=== PATIENT | female | born 1990 | race Caucasian/White ===

== ENCOUNTER → 2019-07-11 15:04 | Outpatient (CLI) | payer MEDICAID, SELFPAY ==
[2019-07-13 10:27] LABS: Thyroid Peroxidase Antibodies 326 IU/mL (0-34)
== END ==
PROVIDERS: Visit Provider Otolaryngology
DX: E03.9 Hypothyroidism, unspecified (principal); E04.9 Nontoxic goiter, unspecified
CPT/HCPCS: 36415; 84439; 86376

== ENCOUNTER → 2019-07-14 13:59 | Outpatient (CLI) | payer MEDICAID, SELFPAY ==
--- NOTE | 2019-07-14 14:11 | US_ITS ---
PROCEDURE: US THYROID CLINICAL INDICATION: ENLARGED THYROID COMPARISON: No exams were available for comparison FINDINGS: Right lobe: Right lobe is 4.0 x 1.6 x 1.1 cm. There is heterogeneous echogenicity of the right lobe. A 6 x 2 mm cyst present in the lower pole Left lobe: The left lobe is 3.6 x 0.9 x 1.1 cm. There is a questionable hypoechoic nodule in the mid polar region at 3 mm. Isthmus: Unremarkable at 3 mm IMPRESSION: Mildly prominent thyroid gland with heterogeneous echogenicity with nondescript cyst in the right pole and a questionable 4 mm nodule on the left. No suspicious or dominant nodules evident. Dictated by: Sandeep Escobar MD 07/14/2019 15:16 Electronically signed by Sandeep Escobar MD in [place] 07/14/2019 15:16
== END ==
PROVIDERS: PCP Nurse Practitioner Family; Visit Provider Otolaryngology
DX: E04.9 Nontoxic goiter, unspecified (principal)
CPT/HCPCS: 76536

== ENCOUNTER 2019-09-26 11:00 | Outpatient (RCR) | payer MEDICAID, SELFPAY | END 2019-10-26 15:17 | disposition home or self-care (01) | LOC: PT.CARL 11:00 | PROVIDERS: PCP Nurse Practitioner Family; Visit Provider Nurse Practitioner Family | DX: M54.5 Low back pain (principal) | CPT/HCPCS: 97014; 97110; 97140; 97163; G0283 ==

== ENCOUNTER → 2019-09-28 11:32 | Outpatient (CLI) | payer MEDICAID, SELFPAY ==
[2019-09-28 13:07] LABS: Free T4 (Free Thyroxine) 1.45 ng/dl (0.78-2.19)
[2019-09-28 13:22] LABS: Thyroid Stimulating Hormone < 0.02 uIU/mL (0.465-4.68)
[2019-09-29 09:26] LABS: Thyroid Peroxidase Antibodies 394 IU/mL (0-34)
[2019-09-30 19:25] LABS: Thyroid Stimulating Immunoglob <0.10 IU/L (0.00-0.55)
== END ==
PROVIDERS: Visit Provider Otolaryngology
DX: E06.9 Thyroiditis, unspecified (principal)
CPT/HCPCS: 36415; 84439; 84443; 84445; 86376

== ENCOUNTER 2021-09-18 20:02 | Emergency (ER) | payer MEDICAID, SELFPAY ==
[2021-09-18 20:03] VITALS: BP 156/105; PULSE 102; RESP 16; TEMP 37.2; O2SAT 98; BMI 30.2
--- NOTE | 2021-09-18 20:28 | HMH.EDGENADL ---
ED Disposition Clinical Impression: UTI (urinary tract infection) Disposition: Home, Self-Care Condition on Discharge: Good Instructions: DI for Low Back Pain Additional Instructions: Follow up with your primary care and use the medications as instructed. Return to the ER for any new or worsening symptoms. Take significant caution when using the Robaxin as it can cause sedation and you should not drive, operate machinery, or perform dangerous tasks while under the influence of this medication. Doing so could cause harm to yourself or those around you due to sedative effects. Prescriptions: Dicyclomine HCl [Bentyl 10mg capsule] 10 mg PO TID PRN 4 Days #12 cap PRN Reason: Mild Pain Transmission Status: Pending to [facility] methocarbamoL [Methocarbamol] 750 mg PO BID PRN 4 Days #8 tab PRN Reason: spasm Transmission Status: Pending to [facility] Cefdinir [Omnicef 300mg Capsule] 300 mg PO BID 10 Days #20 cap Transmission Status: Pending to [facility] Referrals: Dixie Rachel [Primary Care Provider] - Time of Disposition: :23 - Critical Care Critical Care Time: No Attestation: On , the high probability of a clinically significant, sudden or life threatening deterioration of the following system(s) required my full and direct attention, intervention and personal management. The time I documented below is in addition to time spent performing reported procedures but includes the following listed in this critical care notation. Medical Decision Making - Medical Records Medical records reviewed: Yes: I reviewed the patient's medical records. - Mickey Inquiry Pt receiving controlled substance: No Mickey was queried for this patient: No Vital Signs: 09/18/21 20:03 Temperature 99.0 F Temperature Source Oral Pulse Rate [Left] 102 H Respiratory Rate 16 Blood Pressure [Right Arm] 156/105 H Blood Pressure Mean [Right Arm] 122 02 Sat by Pulse Oximetry 98 - Lab Data Lab Results 09/18/21 20:20: Urine Color Yellow, Urine Appearance Clear, Urine pH 5.5, Ur Specific [place] >= 1.030, Urine Protein Negative, Urine Glucose (UA) Negative, Urine Ketones Negative, Urine Blood Negative, Urine Nitrate Negative, Urine Bilirubin Negative, Urine Urobilinogen 0.2, Ur Leukocyte Esterase Negative, Urine WBC 3-5, Ur Squamous Epith Cells 5-10, Urine Bacteria 1+ Orders (Tests/Meds): ED MEDICATIONS Discontinued Medications Generic Name Dose Route Start Last Admin Trade Name Chepe PRN Reason Stop Dose Admin Ketorolac Tromethamine 30 mg 09/18/21 20:28 09/18/21 20:56 Ketorolac 30mg/Ml Vial IV 09/18/21 20:29 30 mg ONCE ONE Administration Medical Decision Narrative: 31-year-old female who presents with left lower back pain/flank pain. He is well-appearing nontoxic. Patient is having urinary frequency. Given Toradol 30 mg IV and a urinalysis was obtained. Urinalysis has leukouria and bacteria and given her urinary symptoms we will treat as a urinary tract infection. Abdominal symptoms have subsided and her abdominal exam is benign. Think there is a possibility the source of her pain may still be musculoskeletal we will give her a prescription for Robaxin as well as the antibiotic. Given her recent diarrheal illness considered possible as needed treatment with Bentyl as needed. In good condition. General Adult HPI - General Chief complaint: Back Pain/Injury Stated complaint: pain lower back and stomach Time Seen by Provider: 09/18/21 20:28 Mode of Arrival: Ambulatory Source of Information: Patient Limitations: No Limitations Description of Symptoms (Recalled from ER Triage Doc. by RN): pt states that she had abdominal pain yesterday and that she had alot of diarrhea then woke up today with left back pain 6/10, pt also states she is having more frequent urge to urinate - History of Present Illness HPI narrative: 31-year-old female who presents with left-sided fl
[2021-09-18 20:38] LABS: Microscopic, Urine URINE MICROSCOPIC (MICROSCOPIC)
[2021-09-18 20:54] LABS: Appearance,Urine CLEAR (Clear); Bilirubin,Urine Negative (Negative); Blood, Urine Negative (Negative); Color,Urine YELLOW (Yellow); Glucose,Urine (UA) Negative (Negative); Ketones,Urine Negative (Negative); Leukocyte Esterase,Urine Negative (Negative); Nitrate,Urine Negative (Negative); PH,Urine 5.5 (5.0-8.5); Protein,Urine Negative (Negative); Specific Gravity, Urine >= 1.030 (1.005-1.030); Urobilinogen,Urine 0.2 EU/dl (0.2)
[2021-09-18 21:06] LABS: Bacteria,Urine 1+ /lpf
--- NOTE | 2021-09-18 21:13 | PC.NURSE ---
Pt resting well. No new needs. Visitor remains at bedside.
[2021-09-18 21:32] VITALS: BP 147/81; PULSE 90; RESP 16; TEMP 37.1; O2SAT 99
== END 2021-09-18 21:33 | disposition home or self-care (01) ==
PROVIDERS: Emergency Provider Student in an Organized Health Care Education/Training Program; PCP Nurse Practitioner Family
DX: R35.0 Frequency of micturition (principal); M54.50 Low back pain, unspecified; R19.7 Diarrhea, unspecified; R10.13 Epigastric pain; R10.32 Left lower quadrant pain; R11.0 Nausea; I10 Essential (primary) hypertension; E06.3 Autoimmune thyroiditis; G43.909 Migraine, unspecified, not intractable, without status migrainosus; Z87.891 Personal history of nicotine dependence
CPT/HCPCS: 81001; 99284

== ENCOUNTER 2022-01-13 20:49 | Emergency (ER) | payer MEDICAID, SELFPAY ==
[2022-01-13 20:50] VITALS: BP 137/99; PULSE 81; RESP 16; TEMP 36.6; O2SAT 97; BMI 30.6
--- NOTE | 2022-01-13 20:59 | PC.NURSE ---
c-collar applied to pt
--- NOTE | 2022-01-13 21:08 | PC.NURSE ---
Pt right foot propped up on pillow and ice pack provided.
[2022-01-13 21:30] VITALS: BP 137/99; PULSE 80; O2SAT 96
[2022-01-13 22:00] VITALS: BP 148/106; PULSE 81; O2SAT 90
--- NOTE | 2022-01-13 22:16 | XR_ITS ---
PROCEDURE INFORMATION: Exam: XR Right Foot Exam date and time: 01/13/2022 10:38 PM Age: 31 years old Clinical indication: Pain; Foot; Right; Additional info: Fall, C/O pain laterally TECHNIQUE: Imaging protocol: Radiologic exam of the Right foot. Views: 3 or more views. COMPARISON: CR XR ANKLE RT MIN 3V 01/13/2022 10:36 PM FINDINGS: Bones/joints: Normal appearing bones and joints without evidence of a fracture line. Bone density is normal without a lytic or blastic lesion. Soft tissues: NA IMPRESSION: No evidence of an acute bony injury or abnormality.
--- NOTE | 2022-01-13 22:16 | CT_ITS ---
PROCEDURE INFORMATION: Exam: CT Head Without Contrast Exam date and time: 01/13/2022 10:48 PM Age: 31 years old Clinical indication: Injury or trauma; Fall; Blunt trauma (contusions or hematomas); Without loss of consciousness TECHNIQUE: Imaging protocol: Computed tomography of the head without contrast. Radiation optimization: All CT scans at this facility use at least one of these dose optimization techniques: automated exposure control; mA and/or kV adjustment per patient size (includes targeted exams where dose is matched to clinical indication); or iterative reconstruction. COMPARISON: No relevant prior studies available. FINDINGS: Brain: Normal appearing brain parenchyma without intraparenchymal hemorrhage and normal diaz-white matter differentiation/no obvious acute ischemic stroke. No intra-or extra-axial fluid collection, no supra-or infratentorial mass, no mass effect or midline shift. Cerebral ventricles: Ventricles, sulci and basal cisterns are normal in size without hydrocephalus. Paranasal sinuses: No significant mucoperiosteal thickening in the visualized paranasal sinuses. Deviation of the nasal septum to the RIGHT. Mastoid air cells: No mastoid effusion. Bones/joints: Visualized skull bones are grossly normal. Soft tissues: NA IMPRESSION: No evidence of an acute intracranial hemorrhage, mass lesion or obvious acute ischemic infarction.
--- NOTE | 2022-01-13 22:16 | XR_ITS ---
PROCEDURE INFORMATION: Exam: XR Right Ankle Exam date and time: 01/13/2022 10:36 PM Age: 31 years old Clinical indication: Pain; Ankle; Right; Additional info: Fall, C/O pain laterally TECHNIQUE: Imaging protocol: Radiologic exam of the Right ankle. Views: 3 or more views. COMPARISON: No relevant prior studies available. FINDINGS: Bones/joints: Normal appearing bones and joints without evidence of a fracture line. Bone density is normal without a lytic or blastic lesion. Soft tissues: NA IMPRESSION: No evidence of an acute bony injury or abnormality.
--- NOTE | 2022-01-13 22:16 | CT_ITS ---
PROCEDURE INFORMATION: Exam: CT Cervical Spine Without Contrast Exam date and time: 01/13/2022 10:48 PM Age: 31 years old Clinical indication: Injury or trauma; Fall; Blunt trauma; Injury date: 01/13/22 TECHNIQUE: Imaging protocol: Computed tomography of the cervical spine without contrast. Radiation optimization: All CT scans at this facility use at least one of these dose optimization techniques: automated exposure control; mA and/or kV adjustment per patient size (includes targeted exams where dose is matched to clinical indication); or iterative reconstruction. COMPARISON: No relevant prior studies available. FINDINGS: Bones/joints: Loss of normal curvature of the spine, alignment of the vertebral bodies is grossly normal. Vertebral body height is normal without compression fracture or deformity. No evidence of a displaced fracture involving the vertebral bodies or their posterior elements. Facet joints are normally aligned without facetal dislocation or subluxation. Discs/Spinal canal/Neural foramina: Dens, lateral C1-C2 articulation, atlantooccipital joints are unremarkable without evidence of fracture or dislocation. Intervertebral discs are unremarkable. Soft tissues: Pre-and paravertebral soft tissues are grossly normal. IMPRESSION: Unremarkable study without an acute cervical spine injury or abnormality.
[2022-01-13 22:31] VITALS: BP 132/95; PULSE 78; O2SAT 98
[2022-01-13 23:00] VITALS: BP 159/102; PULSE 73; O2SAT 97
--- NOTE | 2022-01-13 23:27 | PC.NURSE ---
Pt complains of head pain. RN notified.
--- NOTE | 2022-01-13 23:50 | HMH.EDFALL ---
ED Disposition Clinical Impression: Concussion without loss of consciousness Qualifiers: Encounter type: initial encounter Qualified Code(s): S06.0X0A - Concussion without loss of consciousness, initial encounter Cervical strain, acute Qualifiers: Encounter type: initial encounter Qualified Code(s): S16.1XXA - Strain of muscle, fascia and tendon at neck level, initial encounter Sprain of foot, right Qualifiers: Encounter type: initial encounter Qualified Code(s): S93.601A - Unspecified sprain of right foot, initial encounter Disposition: Home, Self-Care Condition on Discharge: Good Instructions: DI for Concussion Additional Instructions: fluids and call pcp for follow up Referrals: Dixie Rachel [Primary Care Provider] - - Critical Care Critical Care Time: No Attestation: On 01/13/22, the high probability of a clinically significant, sudden or life threatening deterioration of the following system(s) required my full and direct attention, intervention and personal management. The time I documented below is in addition to time spent performing reported procedures but includes the following listed in this critical care notation. Medical Decision Making - Medical Records Medical records reviewed: Yes: I reviewed the patient's medical records. - Mickey Inquiry Pt receiving controlled substance: No Vital Signs: 01/13/22 20:50 01/13/22 21:30 01/13/22 22:00 Temperature 97.9 F Temperature Source Oral Pulse Rate 80 81 Pulse Rate [Left] 81 Respiratory Rate 16 Blood Pressure 137/99 H 148/106 H Blood Pressure [Right Arm] 137/99 H Blood Pressure Mean [Right Arm] 111 02 Sat by Pulse Oximetry 97 96 90 L Oxygen Delivery Method Room Air 01/13/22 22:31 01/13/22 23:00 Temperature Temperature Source Pulse Rate 78 73 Pulse Rate [Left] Respiratory Rate Blood Pressure 132/95 H 159/102 H Blood Pressure [Right Arm] Blood Pressure Mean [Right Arm] 02 Sat by Pulse Oximetry 98 97 Oxygen Delivery Method Room Air - Lab Data Lab results reviewed: Yes: I reviewed the patient's lab results. - Radiology Data #1 Image(s): Ankle, Foot/Toes Image Reviewed: Yes I have reviewed radiologist's interpretation Preliminary Findings: No Fracture Seen - CT Data CT Scan: Head, C-Spine Time Received: 23:[address] Reviewed: Yes: I have viewed the radiologist's interpretation Preliminary Findings: No Fracture Seen Medical Decision Narrative: has fall with stable exam and xrays - concussion Fall HPI - General Chief Complaint: Fall Stated Complaint: ao 01/13 fell off step pain in neck and head Time Seen by Provider: 01/13/22 23:50 Mode of Arrival: Ambulatory Source of Information: Patient, Parent(s), Medical Record Limitations: No Limitations Description of Symptoms (Recalled from ER Triage Doc. by RN): pt states that she fell off a step backwards and hit her head on a concrete patio. the pt states that she had no loss of conciousness or vomiting or vision changes. the pt states that she has pain in the neck and in the right side of the head and a bounding pain near her ear - History of Present Illness HPI Narrative: fall tonight with headache and neck pain and rt foot pain - no loc and no chest or abd pain MD complaint: fall Onset (ago): hour(s) Fall from: standing Fall witnessed: yes, by family Place fall occurred: home Loss of consciousness: none Symptoms prior to fall: none Context: tripped/slipped Location of injury: head, neck Location of injury - extremities: Right: foot Severity: moderate Associated symptoms (after fall): headache - Related Data Home Medications Medication Instructions Recorded Confirmed Buspirone HCl [Buspar 10mg 10 mg PO BID 09/18/21 09/18/21 tablet] Levothyroxine Sodium 150 mcg PO DAILY 09/18/21 09/18/21 [Levothyroxine 150mcg (0.15mg) Tab] Sertraline HCl [Zoloft] 100 mg PO DAILY 09/18/21 09/18/21 hydroCHLOROthiazide [HCTZ 25mg 25 mg
[2022-01-14 00:13] VITALS: BP 132/95; PULSE 75; RESP 16; TEMP 36.6; O2SAT 98
== END 2022-01-14 00:16 | disposition home or self-care (01) ==
PROVIDERS: Emergency Provider Emergency Medicine; PCP Nurse Practitioner Family
DX: S06.0X0A Concussion without loss of consciousness, initial encounter (principal); S16.1XXA Strain of muscle, fascia and tendon at neck level, initial encounter; S93.601A Unspecified sprain of right foot, initial encounter; I10 Essential (primary) hypertension; G43.909 Migraine, unspecified, not intractable, without status migrainosus; Z87.891 Personal history of nicotine dependence; Z82.49 Family history of ischemic heart disease and other diseases of the circulatory system; Z83.438 Family history of other disorder of lipoprotein metabolism and other lipidemia
CPT/HCPCS: 70450; 72125; 73610; 73630; 99285

== ENCOUNTER 2022-03-10 17:24 | Emergency (ER) | payer MEDICAID, SELFPAY ==
[2022-03-10 17:25] VITALS: BP 158/103; PULSE 71; RESP 16; TEMP 37; O2SAT 98; BMI 30.1
[2022-03-10 17:30] VITALS: BP 159/113; PULSE 103; RESP 18; O2SAT 100
--- NOTE | 2022-03-10 17:51 | PC.NURSE ---
placed call to [facility] for pt records
[2022-03-10 18:00] VITALS: BP 166/114; PULSE 102; RESP 18; O2SAT 98
[2022-03-10 18:02] LABS: Microscopic, Urine URINE MICROSCOPIC (MICROSCOPIC)
[2022-03-10 18:12] VITALS: BP 143/97; PULSE 99; RESP 18; O2SAT 98
--- NOTE | 2022-03-10 18:14 | CT_ITS ---
PROCEDURE INFORMATION: Exam: CT Abdomen And Pelvis Without Contrast Exam date and time: 03/10/2022 6:19 PM Age: 31 years old Clinical indication: Abdominal pain; Left; Prior surgery; Surgery date: 6+ months; Surgery type: Hysterectomy, ; Patient HX: Lt flank pain x 1 days, HX of kidney stones; Additional info: Left flank pain TECHNIQUE: Imaging protocol: Computed tomography of the abdomen and pelvis without contrast. Radiation optimization: All CT scans at this facility use at least one of these dose optimization techniques: automated exposure control; mA and/or kV adjustment per patient size (includes targeted exams where dose is matched to clinical indication); or iterative reconstruction. COMPARISON: ABDPELW/O CT ABD PELVIS W/O CONTRAST 08/12/2015 4:12 PM FINDINGS: Liver: Parenchymal enhancement is not evaluated without contrast. No hepatomegaly. Gallbladder and bile ducts: No calcified stones. No ductal dilation. Pancreas: Parenchymal enhancement is not evaluated without contrast. No ductal dilation. Spleen: Parenchymal enhancement is not evaluated without contrast. No splenomegaly. Adrenal glands: No mass. Kidneys and ureters: 5 mm nonobstructing right renal calcification. No hydronephrosis. Stomach and bowel: The descending colon is decompressed and not well evaluated. Appendix: No evidence of appendicitis. Intraperitoneal space: No free air. No significant fluid collection. Vasculature: Limited evaluation without contrast. No abdominal aortic aneurysm. Lymph nodes: No enlarged lymph nodes. Urinary bladder: No acute abnormality. Reproductive: 2.5 cm left ovarian ovoid hypodense lesion. Bones/joints: No acute fracture. Soft tissues: Limited evaluation without contrast. No significant soft tissue swelling. IMPRESSION: 1. 5 mm nonobstructing right renal calcification. No hydronephrosis. 2. 2.5 cm left ovarian ovoid hypodense lesion which may be a follicle or small cyst. 3. The descending colon is decompressed and not well evaluated. Cannot exclude colitis at this location. Clinical correlation recommended.
--- NOTE | 2022-03-10 18:15 | HMH.EDGENADL ---
Discharge Plan Disposition Patient Disposition: Home, Self-Care Condition: Good Prescriptions Prescriptions: New cefdinir 300 mg capsule 300 mg PO BID 10 Days Qty: 20 0RF No Action sertraline 100 MG tablet 100 mg PO DAILY buspirone 10 MG tablet 10 mg PO BID levothyroxine 150 MCG tablet 150 mcg PO DAILY hydrochlorothiazide 25 MG tablet 25 mg PO DAILY methocarbamol 750 MG tablet 750 mg PO BID PRN (Reason: spasm) 4 Days Qty: 8 0RF dicyclomine 10 MG capsule 10 mg PO TID PRN (Reason: Mild Pain) 4 Days Qty: 12 0RF Rx Instructions: For abdominal cramping prn Referrals Follow up/Referrals: Dixie Rachel [Primary Care Provider] - See instructions Activity Restrictions/Add. Instructions Additional Instructions/Restrictions: Additional instructions for URINARY TRACT INFECTION: Take antibiotic as prescribed. Ibuprofen as needed for pain. See your physician in 2-3 days for follow up and culture results. Return immediately if you have an uncontrollable fever greater than 102 degrees, severe back or abdominal pain, inability to urinate, or repetitive vomiting. Clinical Impressions Clinical Impression: Pyelonephritis, Ovarian cyst Instructions Patient Instructions: DI for Acute Abdominal Pain Discharge ED Provider: Kvng Ferrell General Adult HPI General Chief complaint: Abdominal Pain Stated complaint: left side and back pain Time Seen by Provider: 03/10/22 18:08 Mode of Arrival: Ambulatory Source of Information: Patient Limitations: No Limitations Description of Symptoms (Recalled from ER Triage Doc. by RN): PT WITH KNOWN GALLBLADDER PROBLEM AND SEES DR. THORNTON IN THE MORNING. PT STATES HER PAIN HAS BEEN WORSE TODAY. History of Present Illness HPI narrative: States she awakened today at about noon with severe left flank pain. No vomiting, diarrhea, constipation, fever, urinary symptoms. Prior history of a kidney stone years ago. States that she has been having problems with abdominal pain and nausea after eating for a couple of months. Has been seeing her primary care provider. She has been on medications and trying diet changes. This was not helping. She was sent for a gallbladder ultrasound and outpatient gallbladder ultrasound at [facility] recently and says that she was told she had sludge and a stone and has been referred to general surgery, Dr. Thornton, to be seen here in the morning. The symptoms are different than what she has been having. Related Data Home Medications Medication Instructions Recorded Confirmed buspirone 10 mg tablet 10 mg PO BID Anxiety 09/18/21 03/10/22 hydrochlorothiazide 25 mg tablet 25 mg PO DAILY Hypertension 09/18/21 03/10/22 levothyroxine 150 mcg tablet 150 mcg PO DAILY Supplement 09/18/21 03/10/22 sertraline 100 mg tablet 100 mg PO DAILY Anxiety 09/18/21 03/10/22 Previous Rx's Medication Instructions Recorded dicyclomine 10 mg capsule 10 mg PO TID PRN Mild Pain 4 days 09/18/21 #12 caps methocarbamol 750 mg tablet 750 mg PO BID PRN spasm 4 days #8 09/18/21 tabs cefdinir 300 mg capsule 300 mg PO BID 10 days #20 caps 03/10/22 Allergies Allergy/AdvReac Type Severity Reaction Status Date / Time No Known Allergies Allergy Verified 01/13/22 22:10 [facility] Medical History (Updated 03/10/22 @ 19:58 by Kvng Ferrell MD) Anxiety Depression Epilepsy Hypothyroid Surgical History (Updated 03/10/22 @ 17:51 by Ramila Espinoza RN) History of hysterectomy Social History (Updated 03/10/22 @ 17:52 by Ramila Espinoza RN) Smoking Status: Never smoker alcohol intake: never substance use type: denies use current occupational status: employed Travel in the last 8 weeks: None ROS Obtained: Yes Systems reviewed as appropriate & no additional complaints except as documented Constitutional Constitutional: Denies fever(s), Denies headache(s) and Denies weakness ENT Ears, Nose, Mouth, and Thr
[2022-03-10 18:20] LABS: Basophils # 1.2 K/mm3 (0-0.2); Basophils % 8.4 % (0.1-2.0); Eosinophils # 0.1 K/mm3 (0.0-0.4); Hematocrit 51.7 % (37.0-47.0); Hemoglobin 13.9 g/dL (12.2-16.2); Lymphocytes # 2.4 K/mm3 (0.7-4.5); Lymphocytes % 16.5 % (10-50); Mean Corpuscular Hemoglobin 29.7 pg (27.0-31.2); Mean Corpuscular Volume 109.9 fl (81-99); Monocytes # 0.7 K/mm3 (0.1-1.0); Neutrophils # 11.1 K/mm3 (1.8-7.8); Neutrophils % 77.5 % (37.0-80.0); Platelet Count 230 K/mm3 (142-424); Red Cell Distribution Width 19.1 % (11.5-17.5); White Blood Count 14.3 K/mm3 (4.8-10.8)
[2022-03-10 18:26] LABS: Chloride 101 mmol/L (98-107); Sodium 140 mmol/L (136-145)
[2022-03-10 18:27] LABS: Potassium 3.6 mmoL/L (3.5-5.1)
--- NOTE | 2022-03-10 18:28 | PC.NURSE ---
[facility] advised unable to find records for pt and they have no record of her being in ER the date she gave us.
[2022-03-10 18:29] LABS: Alanine Aminotransferase 44 U/L (12-78); Alkaline Phosphatase 79 U/L (38-126); Amylase 65 U/L (30-110); Anion Gap 14.6 mEq/L (5-15); Aspartate Amino Transferase 84 U/L (14-36); Bilirubin,Total 0.2 mg/dl (0.2-1.3); Blood Urea Nitrogen 11 mg/dl (7-17); Calcium 9.5 mg/dl (8.4-10.2); Carbon Dioxide 28 mmol/L (22.0-30.0); Creatinine Clearance Estimated 168 mL/min (50-200); Estimated Glomerular Filt Rate 118 ml/min (>60); GFR (African American) 143 ML/MIN (>60); Glucose 97 mg/dl (74-100); Lipase 101 U/L (23-300)
[2022-03-10 18:30] LABS: Albumin Level 4.4 g/dl (3.5-5.0); Albumin/Globulin Ratio 1.5 (1.1-1.8); Globulin 2.9 g/dL (1.3-3.2); Total Protein,Serum 7.3 g/dl (6.3-8.2)
[2022-03-10 18:34] LABS: Appearance,Urine SL CLOUDY (Clear); Bilirubin,Urine Negative (Negative); Blood, Urine Negative (Negative); Color,Urine YELLOW (Yellow); Glucose,Urine (UA) Negative (Negative); Ketones,Urine Negative (Negative); Leukocyte Esterase,Urine 1+ (Negative); Nitrate,Urine POSITIVE (Negative); Protein,Urine Negative (Negative); Specific Gravity, Urine 1.025 (1.005-1.030); Urobilinogen,Urine 0.2 EU/dl (0.2)
--- NOTE | 2022-03-10 19:18 | PC.NURSE ---
pt given warm blanket and lights turned out
[2022-03-10 19:21] LABS: Bacteria,Urine 4+ /lpf
[2022-03-10 20:15] VITALS: BP 147/100; PULSE 76; RESP 18; TEMP 36.7; O2SAT 98
== END 2022-03-10 20:18 | disposition home or self-care (01) ==
PROVIDERS: Emergency Provider Emergency Medicine; PCP Nurse Practitioner Family
DX: N12 Tubulo-interstitial nephritis, not specified as acute or chronic; N83.202 Unspecified ovarian cyst, left side; Z79.899 Other long term (current) drug therapy; F41.9 Anxiety disorder, unspecified; I10 Essential (primary) hypertension; F32.A Depression, unspecified; E03.9 Hypothyroidism, unspecified; G40.909 Epilepsy, unspecified, not intractable, without status epilepticus
CPT/HCPCS: 74176; 80053; 81001; 82150; 83690; 85025; 87086; 87088; 87186; 96365; 96375; 99284; J0696

== ENCOUNTER 2024-10-26 13:00 | Outpatient (CLI) | payer MEDICAID, SELFPAY ==
--- NOTE | 2024-10-26 13:05 | MM_ITS ---
PROCEDURE INFORMATION: Exam: US Right Breast, Complete MG Bilateral Diagnostic Breast Tomosynthesis Exam date and time: 10/26/2024 1:33 PM Age: 34 years old Clinical indication: Region of palpable concern right breast. TECHNIQUE: Imaging protocol: Complete ultrasound of all four quadrants of the right breast and the retroareolar regions, including ultrasound of the axilla when performed. Bilateral Diagnostic tomosynthesis and 2D mammography including computer-aided detection (CAD) when performed. Unilateral or bilateral exam. COMPARISON: Mammogram 07/15/2022 FINDINGS: MAMMOGRAPHY: Breast composition: There are scattered areas of fibroglandular density. Breast mammogram findings: Bilateral full field CC and MLO tomosynthesis views were obtained. Mass: No suspicious masses. Architectural distortion: None. Calcifications: No suspicious calcifications. Asymmetric density: None. Skin thickening: None. Axillary adenopathy: None. ULTRASOUND: Breast ultrasound findings: Right breast ultrasound: No solid or suspicious masses. Benign simple cyst measuring 0.5 cm at 10 o'clock 6 cm from the nipple. No regions of shadowing or distortion are seen. No abnormal lymph nodes in the axilla. IMPRESSION: No finding to explain the region of palpable concern in the right breast. Recommend follow-up.Annual bilateral mammographic screening is recommended to commence at the age of 40 unless otherwise clinically indicated. ASSESSMENT: BI-RADS Category 2: Benign.
== END 2024-10-26 23:59 | disposition home or self-care (01) ==
LOC: RAD 13:01
PROVIDERS: PCP Physician Assistant; Visit Provider Physician Assistant
DX: N63.14 Unspecified lump in the right breast, lower inner quadrant (principal)
CPT/HCPCS: 76641; 77062; 77066; G0279